=== PATIENT | female | born 1940 | race Caucasian/White ===

== ENCOUNTER 2017-01-05 21:50 | Emergency (ER) | payer MEDICARE ==
[~2017-01-05] VITALS: Ht 167.6 cm; Wt 71.5 kg
[~2017-01-05 21:50] MED LIST: DYAZ PO; GLIM2TAB PO; METF-324 PO; PROT40TA PO; SYNT25TA PO; ZOCO40TA PO
[2017-01-05 21:55] VITALS: BP 162/70; PULSE 87; RESP 16; TEMP 98.7; O2SAT 87
[2017-01-05] MEDS ORDERED: SYNT25TA PO (22:27)
[2017-01-05] MEDS ORDERED: LEVO500T8 PO (22:27)
[2017-01-05] MEDS ORDERED: PANT40TA3 PO (22:27)
[2017-01-05] MEDS ORDERED: GLIM4TAB PO (22:27)
[2017-01-05] MEDS ORDERED: SIMV40TA PO (22:27)
[2017-01-05] MEDS ORDERED: DYAZ37.5 PO (22:27)
[2017-01-05] MEDS ORDERED: RANI150T PO (22:27)
[2017-01-05] MEDS ORDERED: METF1000 PO (22:27)
[2017-01-05 22:32] VITALS: BP 142/63; PULSE 82; RESP 16; O2SAT 98
--- NOTE | 2017-01-05 22:41 | PD ---
HPI Chief Complaint: Chest Pain Time Seen by Provider: 22:22 Travel History International Travel<30 days: No Contact w/Intl Traveler<30days: No Traveled to known affect area: No History of Present Illness HPI 77-year-old female complains of chest pain. Patient had fever and cough last week. Patient was seen by personal physician 6 days ago and had chest x-ray done. Chest x-ray showed left lung infiltrate. Patient was diagnosed with aspiration pneumonia. Patient was put on Levaquin 5 mg daily. Patient also was given Zantac and pantoprazole. Patient states that the cough got better. Patient started having substernal left-sided chest pain is afternoon. Patient states the pain is sharp pain localized substernally and left-sided chest. Patient denies any pain radiation. Patient denies palpitation diaphoresis. Patient states that she has increasing shortness of breath this afternoon. Patient states that she has not had fever since she started antibiotic. Patient has history of seizure, TIA, diabetes, hypertension, hypothyroidism, hyperlipidemia. Patient states that she has recurrent left sided chest wall pain for the past 3 years. 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) Cardiac Catheterization: Yes Cardiovascular Problems: Yes (cardiac cath.) High Cholesterol: Yes Chemotherapy: No Chest Pain: No Congestive Heart Failure: No COPD: No Cerebrovascular Accident: Yes (TIA [place] 1989, POSS APR 2014) Diabetes: Yes Patient Takes Glucophage: Yes Diverticulitis: Yes Endocrine: Yes Gastrointestinal Disorders: Yes (DIVERTICULITIS) Genitourinary: No Hepatitis: No Hiatal Hernia: No Hypertension: Yes Immune Disorder: No Kidney Stones: No Musculoskeletal: No Neurologic: Yes (TIA 04/2014) Psychiatric: No Reproductive: No Respiratory: No Immunizations Current: No Migraines: No Radiation Therapy: Yes Sleep Apnea: No Thyroid Disease: Yes (hypothyroidism) Ulcer: No Tetanus Vaccination: < 5 Years Menopausal: Yes Tubal Ligation: Yes Past Surgical History Abdominal Surgery: Yes AICD: No Cardiac Surgery: Yes (LEFT CORADID) Cholecystectomy: Yes Coronary Artery Bypass Graft: No Ear Surgery: No Endocrine Surgery: No Eye Surgery: Yes (cataracts) Genitourinary Surgery: No Gynecologic Surgery: No Joint Replacement: No Oral Surgery: No Pacemaker: No Thoracic Surgery: Yes (LEFT MASTECTOMY) Other Surgery: Yes (cardiac cath, CHOLECYSTECTOMY, LEFT COROTID, bowel reconstruction ) Social History Alcohol Use: No Tobacco Use: No Substance Use: No Allergies-Medications (Allergen,Severity, Reaction): Coded Allergies: hydromorphone (Verified Allergy, Mild, "MAKES ME CRAZY", 01/05/17) Reported Meds & Prescriptions Reported Meds & Active Scripts Active Reported Synthroid (Levothyroxine Sodium) 25 Mcg Tab 25 Mcg PO DAILY Glimepiride 4 Mg Tab 4 Mg PO DAILY Take with breakfast or first main meal Dyazide (Triamterene-Hydrochlorothiazide) 37.5-25 Mg Cap 1 Cap PO DAILY Simvastatin 40 Mg Tab 40 Mg PO HS Metformin (Metformin HCl) 1,000 Mg Tab 1,000 Mg PO BIDPC With meals Pantoprazole (Pantoprazole Sodium) 40 Mg Tab 40 Mg PO DAILY Ranitidine (Ranitidine HCl) 150 Mg Tab 150 Mg PO HS Levofloxacin 500 Mg Tablet 500 Mg PO DAILY Review of Systems General / Constitutional: No: Fever Eyes: No: Visual changes HENT: No: Headaches Cardiovascular: Positive: Chest Pain or Discomfort Respiratory: Positive: Shortness of Breath Gastrointestinal: No: Abdominal Pain Genitourinary: No: Dysuria Musculoskeletal: No: Pain Skin: No Rash Neurologic: No: Weakness Psychiatric: No: Depression Endocrine: No: Polydipsia Hematologic/Lymphatic: No: Easy Bruising Physical Exam Narrative GENERAL: Well-nourished, well-developed patient. SKIN: Focused skin assessment warm/dry. HEAD: Normocephalic. EYES: No scleral icterus. No injection or drainage. NECK: Supple, trachea midline. No JVD or lymphadenopathy. CARDIOVASCULAR: Regular rate and rhythm without murmurs, gallops, or rubs. RESPIRATORY: Breath sounds equal bilaterally. No accessory muscle use. Patient has rhonchi bibasilar. No wheezes. GASTROINTESTINAL: Abdomen soft, non-tender, nondistended. MUSCULOSKELETAL: No cyanosis, or edema. BACK: Nontender without obvious deformity. No CVA tenderness. Neurologic exam: Patient's awake and alert oriented 3. No obvious focal neurological deficit. Data Data Last Documented VS Vital Signs Date Time Temp Pulse Resp B/P (MAP) Pulse Ox O2 Delivery O2 Flow Rate FiO2 01/05/17 23:18 87 18 137/64 (88) 98 Room Air 01/05/17 21:55 98.7 Orders Orders Electrocardiogram (01/05/17 22:29) Complete Blood Count With Diff (01/05/17 22:29) Comprehensive Metabolic Panel (01/05/17 22:29) Creatine Kinase (Cpk) (01/05/17 22:29) Troponin I (01/05/17 22:29) Prothrombin Time / Inr (Pt) (01/05/17 22:29) Act Partial Throm Time (Ptt) (01/05/17 22:29) Blood Culture (01/05/17 22:29) Urinalysis - C+S If Indicated (01/05/17 22:29) D-Dimer (01/05/17 22:29) Influenzae A/B Antigen (01/05/17 22:29) Chest, Single Ap (01/05/17 22:29) Iv Access Insert/Monitor (01/05/17 22:29) Ecg Monitoring (01/05/17 22:29) Oximetry (01/05/17 22:29) Ct Pulmonary Angiogram (01/05/17 22:29) Iohexol 350 Inj (Omnipaque 350 Inj) (01/06/17 00:15) Labs Laboratory Tests Test 01/05/17 22:40 01/05/17 23:05 White Blood Count 8.0 TH/MM3 Red Blood Count 3.62 MIL/MM3 Hemoglobin 11.4 GM/DL Hematocrit 33.6 % Mean Corpuscular Volume 92.8 FL Mean Corpuscular Hemoglobin 31.4 PG Mean Corpuscular Hemoglobin Concent 33.9 % Red Cell Distribution Width 14.9 % Platelet Count 159 TH/MM3 Mean Platelet Volume 7.3 FL Neutrophils (%) (Auto) 66.2 % Lymphocytes (%) (Auto) 23.4 % Monocytes (%) (Auto) 6.1 % Eosinophils (%) (Auto) 3.8 % Basophils (%) (Auto) 0.5 % Neutrophils # (Auto) 5.3 TH/MM3 Lymphocytes # (Auto) 1.9 TH/MM3 Monocytes # (Auto) 0.5 TH/MM3 Eosinophils # (Auto) 0.3 TH/MM3 Basophils # (Auto) 0.0 TH/MM3 CBC Comment DIFF FINAL Differential Comment Prothrombin Time 10.5 SEC Prothromb Time International Ratio 1.0 RATIO Activated Partial Thromboplast Time 22.4 SEC D-Dimer Quantitative (PE/DVT) 0.80 MG/L FEU Blood Urea Nitrogen 15 MG/DL Creatinine 0.89 MG/DL Random Glucose 115 MG/DL Total Protein 7.5 GM/DL Albumin 3.4 GM/DL Calcium Level 8.5 MG/DL Alkaline Phosphatase 58 U/L Aspartate Amino Transf (AST/SGOT) 29 U/L Alanine Aminotransferase (ALT/SGPT) 24 U/L Total Bilirubin 0.5 MG/DL Sodium Level 136 MEQ/L Potassium Level 3.3 MEQ/L Chloride Level 99 MEQ/L Carbon Dioxide Level 25.7 MEQ/L Anion Gap 11 MEQ/L Estimat Glomerular Filtration Rate 61 ML/MIN Total Creatine Kinase 94 U/L Troponin I LESS THAN 0.02 NG/ML Urine Color YELLOW Urine Turbidity CLEAR Urine pH 6.5 Urine Specific [place] 1.009 Urine Protein NEG mg/dL Urine Glucose (UA) NEG mg/dL Urine Ketones NEG mg/dL Urine Occult Blood NEG Urine Nitrite NEG Urine Bilirubin NEG Urine Urobilinogen LESS THAN 2.0 MG/DL Urine Leukocyte Esterase NEG Urine RBC LESS THAN 1 /hpf Urine WBC LESS THAN 1 /hpf Urine Squamous Epithelial Cells 1 /hpf Urine Bacteria OCC /hpf Urine Hyaline Casts 1 /lpf Urine Mucus FEW /lpf Microscopic Urinalysis Comment CULT NOT INDICATED MDM Medical Decision Making Medical Screen Exam Complete: Yes Emergency Medical Condition: Yes Interpretation(s) Last Impressions Chest X-Ray 01/05/17 2229 Signed Impressions: Service Date/Time: Thursday, January 05, 2017 22:50 - CONCLUSION: 1. Left lung base atelectasis versus scarring. 2. No acute abnormality or significant interval change. Uvaldo Richardson MD 12:54 AM . CBC within normal limit. Potassium 3.3. Cardiac enzymes are normal. D-dimer 0.8. UA is negative. Differential Diagnosis Differential diagnosis including pneumonia, pleurisy, PE, pneumothorax, angina, CT. Narrative Course 77-year-old female with chest pain and shortness of breath. Patient being treated for pneumonia. Diagnosis Primary Impression: Atypical chest pain Patient Instructions: General Instructions Additional Instructions: Continue with all medications. Follow-up with personal physician. Return if worse. Tylenol Advil for pain. Med/Other Pt SpecificInfo: No Change to Meds Disposition: 01 DISCHARGE HOME Condition: Stable Ken Cabrera MD Jan 05, 2017 22:41
--- NOTE | 2017-01-05 22:56 | RADRPT ---
EXAM DATE/TIME: 01/05/2017 22:50 [facility] COMPARISON: CT PULMONARY ANGIOGRAM, November 22, 2014, 11:40. CHEST SINGLE AP, November 22, 2014, 9:39. INDICATIONS : Shortness of breath. MEDICAL HISTORY : None. SURGICAL HISTORY : None. ENCOUNTER: Initial ACUITY: 1 day PAIN SCORE: 0/10 LOCATION: Bilateral chest FINDINGS: Minimal linear parenchymal opacities in the left lung base consistent with atelectasis/scarring. No n ew focal pleural or clinical opacities. Cardiac mediastinal contours are stable. Remainder of exam is unchanged. CONCLUSION: 1. Left lung base atelectasis versus scarring. 2. No acute abnormality or significant interval change. Uvaldo Richardson MD on January 05, 2017 at 22:52 Board Certified Radiologist. This report was verified electronically.
[2017-01-05 23:05] LABS: AUTOMATED NEUTROPHIL # 5.3 TH/MM3 (1.8-7.7); BASOPHIL % 0.5 % (0.0-2.0); EOSINOPHIL # 0.3 TH/MM3 (0-0.4); EOSINOPHIL % 3.8 % (0.0-4.0); HEMATOCRIT 33.6 % (35.0-46.0); HEMO FLAGS DIFF FINAL; LYMPH % 23.4 % (9.0-44.0); LYMPHOCYTE # 1.9 TH/MM3 (1.0-4.8); MEAN CELL VOLUME 92.8 FL (80.0-100.0); MEAN CORPUSCULAR HEMOGLOBIN 31.4 PG (27.0-34.0); MEAN CORPUSCULAR HGB CONC 33.9 % (32.0-36.0); MONO % 6.1 % (0.0-8.0); NEUT % 66.2 % (16.0-70.0); PLATELET COUNT 159 TH/MM3 (150-450); RED BLOOD COUNT 3.62 MIL/MM3 (4.00-5.30); RED CELL DISTRIBUTION WIDTH 14.9 % (11.6-17.2)
[2017-01-05 23:12] VITALS: BP 137/64; PULSE 81; RESP 18; O2SAT 98
[2017-01-05 23:18] VITALS: BP 137/64; PULSE 87; RESP 18; O2SAT 98
[2017-01-05 23:33] LABS: APTT (PATIENT) 22.4 SEC (24.3-30.1); PROTHROMBIN TIME - PATIENT 10.5 SEC (9.8-11.6)
[2017-01-05 23:34] LABS: ANION GAP 11 MEQ/L (5-15); AST (GOT) 29 U/L (15-37); BICARBONATE 25.7 MEQ/L (21.0-32.0); BLOOD UREA NITROGEN 15 MG/DL (7-18); CHLORIDE 99 MEQ/L (98-107); GLOMERULAR FILTRATION RATE 61 ML/MIN (>89); POTASSIUM 3.3 MEQ/L (3.5-5.1); SODIUM (NA) 136 MEQ/L (136-145)
[2017-01-05 23:35] LABS: ALT (GPT) 24 U/L (10-53)
[2017-01-05 23:39] LABS: ALKALINE PHOSPHATASE 58 U/L (45-117); TOTAL BILIRUBIN ADULT 0.5 MG/DL (0.2-1.0)
[2017-01-05 23:41] LABS: BACTERIA, URINE OCC /hpf; BLOOD, URINE NEG (NEG); COMMENT (UR) CULT NOT INDICATED; CULTURE IF INDICATED CULT NOT INDICATED; GLUCOSE,URINE NEG (NEG); HYALINE CAST, URINE 1 /lpf (RARE); KETONE, URINE NEG (NEG); MUCUS URINE FEW /lpf (OCC); NITRITE,URINE NEG (NEG); PH, URINE 6.5 (5.0-8.5); SQUAMOUS EPITHELIAL CELL URINE 1 /hpf (0-5); URINE COLOR YELLOW (YELLW/STRAW)
[2017-01-05 23:56] LABS: CREATINE KINASE 94 U/L (26-192)
[2017-01-06] MEDS ORDERED: IOHEXOL 350 MG/ML 10 ML VIAL (for RAD DIAG) IVCONTRAST ONE (00:15)
--- NOTE | 2017-01-06 00:51 | RADRPT ---
EXAM DATE/TIME: 01/06/2017 00:13 [facility] COMPARISON: CT PULMONARY ANGIOGRAM, November 22, 2014, 11:40. INDICATIONS : Chest pain with shortness of breath. IV CONTRAST: 70 cc Omnipaque 350 (iohexol) IV RADIATION DOSE: 23.08 CTDIvol (mGy) MEDICAL HISTORY : Hypertension. Diabetes mellitus type 2. Carcinoma, breast. SURGICAL HISTORY : Mastectomy, left. ENCOUNTER: Initial ACUITY: 1 day PAIN SCALE: 5/10 LOCATION: Bilateral chest TECHNIQUE: Volumetric scanning of the chest was performed using a pulmonary embolism protocol MIP images were re constructed. Using automated exposure control and adjustment of the mA and/or kV according to patien t size, radiation dose was kept as low as reasonably achievable to obtain optimal diagnostic quality images. DICOM format image data is available electronically for review and comparison. Follow-up recommendations for detected pulmonary nodules are based at a minimum on nodule size and pa tient risk factors according to Fleischner Society Guidelines. FINDINGS: PULMONARY ARTERIES: No filling defects are seen in the pulmonary arteries through the segmental level. Pulmonary artery i s marginal in size measuring up to 3.1 cm. LUNGS: Groundglass opacities in the left lung base anteriorly similar to previous exam. Interstitial promine nce in the superior segment of the right lower lobe peripherally similar to previous exam. No new foc al parenchymal abnormality. PLEURAE: There is no pleural thickening or pleural effusion. MEDIASTINUM: Heart appears unremarkable without significant pericardial effusion. No significant mediastinal adeno umang. MUSCULOSKELETAL: Within normal limits for patient age. MISCELLANEOUS: Visualized upper abdomen again demonstrates pneumobilia in the visualized portions of the liver and m ultiple splenic calcifications consistent with prior cranial metastases. CONCLUSION: 1. No CT evidence for pulmonary embolism through the subsegmental level as questioned. 2. Borderline main pulmonary artery size which may reflect some degree of pulmonary artery hypertensi on. 3. No acute abnormality or significant interval change. Uvaldo Richardson MD on January 06, 2017 at 0:45 Board Certified Radiologist. This report was verified electronically.
--- NOTE | 2017-01-06 14:34 | EKG ---
Date Performed: 01/05/2017 Time Performed: 22:25:29 PTAGE: 77 years EKG: Sinus rhythm POSSIBLE RIGHT VENTRICULAR CONDUCTION DELAY BORDERLINE ECG Compared to prior tracing no significant change PREVIOUS TRACING : 11/23/2014 00.37 DOCTOR: Arnulfo Mckeon Interpretating Date/Time 01/06/2017 14:31:57
== END 2017-01-06 01:40 | disposition home or self-care (01) ==
LOC: NEPC 21:50
DX: R07.89 Other chest pain (principal); R06.02 Shortness of breath; R56.9 Unspecified convulsions; E11.9 Type 2 diabetes mellitus without complications; I10 Essential (primary) hypertension; E03.9 Hypothyroidism, unspecified; E78.5 Hyperlipidemia, unspecified; K57.92 Diverticulitis of intestine, part unspecified, without perforation or abscess without bleeding; Z86.73 Personal history of transient ischemic attack (TIA), and cerebral infarction without residual deficits
CPT/HCPCS: 71010; 71275; 80053; 81001; 82550; 84484; 85025; 85379; 85610; 85730; 87040; 87804; 93005; 99285; Q9967